=== PATIENT | female | born 1990 | race Two or more races ===

== ENCOUNTER 2020-06-01 16:50 | Emergency (ER) | payer OTHER ==
[~2020-06-01] VITALS: Ht 170.2 cm; Wt 72.7 kg
[2020-06-01 18:20] VITALS: BP 104/52
[2020-06-01] MEDS ORDERED: BACITRACIN 0.9 GM PACKET OINTMENT TP ONE (18:30)
[2020-06-01] MEDS ORDERED: CEPHALEXIN MONOHYDRATE 500 MG CAPSULE PO ONE (18:30)
[2020-06-01] MEDS ORDERED: IBUPROFEN 600 MG TABLET PO ONE (18:30)
[2020-06-01] MEDS ORDERED: LIDOCAINE 1% 10 ML VIAL INJ ONE (18:30)
[2020-06-01] MEDS ORDERED: HYDROCODONE/ACETAMINOPHEN 5-325 MG TABLET PO ONE (18:30)
== END 2020-06-01 20:26 | disposition home or self-care (01) ==
LOC: EMS 16:50
DX: L03.012 Cellulitis of left finger (principal)
CPT/HCPCS: 10060; 99284; J3490